=== PATIENT | female | born 1975 | race African-American/Black ===

== ENCOUNTER 2019-01-29 18:50 | Emergency (ER) | payer SELFPAY ==
[~2019-01-29] VITALS: Ht 134.6 cm; Wt 91.8 kg
[2019-01-29 18:55] VITALS: TEMP 98.5
[2019-01-29] MEDS ORDERED: NORCO 325 MG-51 TAB PO (19:48)
[2019-01-29] MEDS ORDERED: PEN-VEE K500 MG PO (20:09)
[2019-01-29 20:18] VITALS: BP 138/104; PULSE 89
[2019-01-30] MEDS ORDERED: CLEOCIN HC150 MG/CAP PO (15:05)
== END 2019-01-29 20:26 | disposition home or self-care (01) ==
LOC: COL.ER 18:50
DX: K02.9 Dental caries, unspecified (principal); F17.210 Nicotine dependence, cigarettes, uncomplicated; Z98.890 Other specified postprocedural states
CPT/HCPCS: J1885

== ENCOUNTER 2019-01-30 14:37 | Emergency (ER) | payer SELFPAY ==
[~2019-01-30] VITALS: Ht 152.4 cm; Wt 100.0 kg
[~2019-01-30 14:37] MED LIST: NORCO 325 MG-51 TAB PO; PEN-VEE K500 MG PO
[2019-01-30] MEDS ORDERED: CLEOCIN HC150 MG/CAP PO (15:05)
[2019-01-30 15:15] VITALS: BP 138/96; PULSE 68; TEMP 98.9
== END 2019-01-30 15:35 | disposition home or self-care (01) ==
LOC: COL.ER 14:37
DX: K02.9 Dental caries, unspecified (principal); F17.210 Nicotine dependence, cigarettes, uncomplicated
CPT/HCPCS: J1885

== ENCOUNTER 2019-01-31 00:11 | Emergency (ER) | payer SELFPAY ==
[~2019-01-31] VITALS: Ht 162.6 cm; Wt 100.0 kg
[~2019-01-31 00:11] MED LIST changes: +CLEOCIN HC150 MG/CAP PO
[2019-01-31 00:23] VITALS: BP 132/93; PULSE 80
[2019-01-31 01:28] LABS: BASO # 0.1 (0.0-0.2); BASO % 0.6 % (0.0-2.0); EOS # 0.3 (0.0-0.7); EOS % 2.3 % (0-4.0); GRAN # 7.5 (1.4-6.5); GRAN % 59.2 % (42.2-75.2); HEMATOCRIT 37.1 % (37.0-47.0); HEMOGLOBIN 11.3 g/dl (12.5-16.0); LYMPH # 3.9 (1.2-3.4); LYMPH % 30.5 % (20.0-51.0); MEAN CELL VOLUME 84 fl (80.0-100.0); MEAN CORPUSCULAR HEMOGLOBIN 26 pg (27.0-31.0); MEAN CORPUSCULAR HGB CONC 31 g/dl (33.0-37.0); MEAN PLATELET VOLUME 10.4 fl (7.4-10.4); MONO # 0.9 (0.1-0.6); MONO % 7.2 % (1.7-9.3); PLATELET COUNT 269 K/mm3 (130-400); RED BLOOD COUNT 4.42 M/mm3 (4.10-5.30); REDCELL DISTRIBUTION WIDTH-CV 14.6 % (11.5-14.5)
[2019-01-31 04:55] LABS: ALANINE AMINOTRANSFERASE < 6 U/L (9-52); ALBUMIN 4.1 gm/dL (3.5-5.0); ALKALINE PHOSPHATASE 110 U/L (50-136); ANION GAP 8 mmol/L (7-16); AST,SGOT 24 U/L (15-37); BILIRUBIN,TOTAL 0.3 mg/dL (0.0-1.0); BLOOD UREA NITROGEN 13 mg/dL (7-17); CALCIUM 8.9 mg/dL (8.4-10.2); CARBON DIOXIDE 26 mmol/L (22-30); CHLORIDE 104 mmol/L (98-107); CREATININE, serum 0.83 (0.52-1.25); GLUCOSE 111 mg/dL (74-106); POTASSIUM 4.4 mmol/L (3.4-5.0); SODIUM 139 mmol/L (137-145); TOTAL PROTEIN 8.5 gm/dL (6.4-8.2)
[2019-01-31 11:25] VITALS: TEMP 98.9
== END 2019-01-31 11:25 | disposition home or self-care (01) ==
LOC: COL.ER 00:11
PROVIDERS: Emergency Medicine
DX: L03.211 Cellulitis of face (principal); R51 Headache; K02.9 Dental caries, unspecified; F17.210 Nicotine dependence, cigarettes, uncomplicated; Z98.890 Other specified postprocedural states; Z90.89 Acquired absence of other organs
CPT/HCPCS: J1170; J1200; J1885; J2765; J3010; J3370; J7040